=== PATIENT | female | born 1985 | race Hispanic/Latino ===

== ENCOUNTER 2017-08-30 18:18 | Outpatient (CLI) | payer OTHER ==
[~2017-08-30] VITALS: Ht 154.9 cm; Wt 73.0 kg
[2017-08-30 18:39] VITALS: BP 111/71
[2017-08-30 19:30] VITALS: BP 112/74
--- NOTE | 2017-08-30 20:02 | IPNPDOC ---
Text Note Date of Service The patient was seen on 08/30/17. NOTE Hortencia is a 32yo with SIUP at 39w5d presenting today with decreased movement and pelvic pain, some spotting. She states normally her baby moves all day long but today has not moved very much until coming to triage- now she feels good movement. She notes increased vaginal discharge today, a little bit of blood seen on a couple occasions. No overt loss of fluid. She is unsure if she is having contractions, feels more pelvic pressure and "cramping". Vitals wnl, afebrile General: WDWN, NAD, resting comfortably in triage bed Abdomen: soft, gravid, nontender Extremities: trace edema of BLE SCE (RN as bundler): 50/-2, NO blood on exam glove NST: reactive, +accels, no decels, mod fabian [place]: irregular ctx/uterine irritability TAUS: SIUP with +FCA/+FM, cephalic, posterior placenta, CLIFF 13cm Assessment: Term SIUP with no evidence of active labor, reassuring status. Now feeling good movement. Vitals wnl, CLIFF 13cm, Reactive NST. Plan: -Safe for discharge -Return precautions discussed at length -Has routine clinic appt Wednesday Dr. Aleida Kee ([facility])[place] MARIE,Donald, I+O VSDonald, I+O Vital Signs Date Time Temp Pulse Resp B/P (MAP) Pulse Ox O2 Delivery O2 Flow Rate FiO2 08/30/17 18:39 98.4 82 18 111/71 (84) ALEIDA KEE MD Aug 30, 2017 20:02
== END 2017-08-30 19:57 | disposition home or self-care (01) ==
LOC: M LDO 18:18
PROVIDERS: ATTEND Obstetrics & Gynecology
DX: O47.1 False labor at or after 37 completed weeks of gestation (principal); Z3A.39 39 weeks gestation of pregnancy; O36.8130 Decreased fetal movements, third trimester, not applicable or unspecified

== ENCOUNTER 2017-09-04 13:05 | Inpatient (IN) | payer OTHER ==
[2017-09-04] VITALS (7 sets, daily range): BP systolic 106–124; BP diastolic 65–77
[~2017-09-04] VITALS: Ht 154.9 cm; Wt 69.9 kg
[2017-09-04] MEDS ORDERED: LR 1,000 ML IV SCH (14:24)
[2017-09-04] MEDS ORDERED: PENICILLIN G POTASSIUM IV 5 MU in D5W MINI-BAG PLUS 100 ML IV STA ×2 (14:24→15:00)
[2017-09-04 14:50] LABS: MEAN CORPUSCULAR HEMOGLOBIN 22.1 pg (27.0-33.0); MEAN CORPUSCULAR HGB CONC 32.8 g/dl (32.0-36.5); RED CELL DISTRIBUTION WIDTH 15.8 % (11.5-14.5); WHITE BLOOD COUNT 12.5 10^3/uL (4.0-10.0)
[2017-09-04 14:53] LABS: MEAN CORPUSCULAR VOLUME 67.4 fl (80.0-96.0)
--- NOTE | 2017-09-04 14:58 | HPEPDOC ---
Obstetrical History & Physical General Date of Admission Sep 04, 2017 at 14:12 History of Present Illness 32 y/o at 40+3 for reg ctx's all morning. Getting more painful. No LOF, slight spotting. Pos FM throughout. Preg uncompl, speaks only occitan but is bilingual and translates very well. Chief Complaint: Contractions, term Information Provided By: Patient, Family Care Care: Good Care Dating Final EDC by: LMP, 1st trimester (US) Past Medical History Past Obstetrical History : Past Obstetrical History: [employer]LECT[employer]SEM[employer] AND TESTER History: No pertinent history Past Medical History Medical History denies Surgical History: Tonsilectomy Family History Significant Family History: No pertinent family hx Social History Marital Status: Family situation: Spouse/partner home Psychosocial History: No pertinent psych hx * Smoker: non-smoker Alcohol: Denies Drugs: denies Abuse Violence Screening Have you been hit/kicked/slapp: No Have you been sexually assault: No Imunizations Tdap status: current Influenza Status: needs Allergies Coded Allergies: No Known Allergies (Unverified , 08/30/17) Physical Examination Physical Examination GENERAL: Alert and oriented times three. ABDOMEN: Gravid and non-tender to touch. FETUS: vertex (VTX) by sterile vaginal examination (SVE), 4-5/75/-2/BBOW HEART RATE: Regular rate and rhythm. LUNGS: Clear to auscultation (CTA). EXTREMITIES: No edema. No clonus. Vital Signs/I&O Vital Signs Date Time Temp Pulse Resp B/P (MAP) Pulse Ox O2 Delivery O2 Flow Rate FiO2 09/04/17 13:19 98.4 81 20 124/75 (91) Room Air Laboratory Data 24H LABS Laboratory Tests 2 09/04/17 14:42: Urine Culture: No Growth Pertinent Laboratoy Data Blood Type: O+ RBC Antibody Screen: Negative HIV: Negative Hepatitis B: Negative Hepatitis C: Unknown Rapid Plasma Reagin: Nonreactive Rubella: Immune Varicella: Immune Chlamydia/Gonorrhea: Negative Group B Streptococcus: Positive Quad Screen Test: Negative (1st tri screen, not the quad screen, did not get a MSAFP) Cystic Fibrosis: Negative Glucose Tolerance Test: 86 Anatomy Ultrasound Placenta Location: Posterior Normal Anatomy: Yes Placenta Previa: No Assessment Variability: Moderate Accelerations: Positive Decelerations: None Tocometer Frequency: regular Duration: greater than 60 seconds Strength: palpated as moderate Assessment/Plan Assessment Active labor. reg ctx's. Plan Admit and orient. Counselor/Art Therapist and consent. Diet: clrs Group B Streptococcus (GBS) pos, PCN Labs and intravenous (IV) per unit protocol. Counseled on Pitocin and induction of labor (IOL). Lactated Ringers (LR): 125 mL/hr. No epidural desired at this time. Anticipate normal spontaneous delivery () C-S as appropriate. Sessions SESSIONS,SUSIE Marx MD Sep 04, 2017 14:58
--- NOTE | 2017-09-04 15:53 | IPNPDOC ---
Text Note Date of Service The patient was seen on 09/04/17. NOTE [id number] @ 1545 32 y/o at 40+3 by LMP([id number]) and 8+2 wk US on [id number] has had regular CTXs all day. Denies LOF and DFM. Reports a small amount of spotting. British speaking only, but is bilingual and translates very well. Report from Dr. Mcmanus @ 1500. S: Uncomfortable during CTX, standing at bedside with next to her providing support. Is not interested in any medication for pain control O: VS- WNL, afebrile FHR- 150, moderate variability, + accels, no decels CTX- Q 1-2 min, lasting <90 sec, palpated as moderate, resting tone palpated as soft. Intact SVE deferred A: 32 yo G1 @ 40+3 by LMP and 8+2 wks US. Frequent, painful, regular CTXs. CAT I FHR P: cont to monitor and assess. Reassess in 2 hours or prn. Consider pitocin if no change at next cervical exam VS,Fishbone, I+O VS, Fishbone, I+O Laboratory Tests 09/04/17 14:42 Red Blood Count 5.34, Mean Corpuscular Volume 67.4 L, Mean Corpuscular Hemoglobin 22.1 L, Mean Corpuscular Hemoglobin Concent 32.8, Red Cell Distribution Width 15.8 H Vital Signs Date Time Temp Pulse Resp B/P (MAP) Pulse Ox O2 Delivery O2 Flow Rate FiO2 09/04/17 13:19 98.4 81 20 124/75 (91) Room Air I&O- Last 24 Hours up to 6 AM 09/05/17 06:00 Intake Total 400 ml Output Total 200 ml Balance 200 ml BUDDY SANTO CNM Sep 04, 2017 15:53
--- NOTE | 2017-09-04 18:03 | IPNPDOC ---
Text Note Date of Service The patient was seen on 09/04/17. NOTE [id number] @ 1800 32 y/o at 40+3 by LMP([id number]) and 8+2 wk US on [id number] has had regular CTXs all day. Citizen Of [place] speaking only, but is bilingual and translates very well. S: Uncomfortable during CTX, standing at bedside with next to her providing support. Is not interested in any medication for pain control O: VS- WNL, afebrile FHR- 140, moderate variability, + accels, no decels CTX- Q 1-3 min, lasting <90 sec, palpated as moderate, resting tone palpated as soft. Intact BBW SVE 5-6/0/-2, soft/mi/vtx A: 32 yo G1 @ 40+3 by LMP and 8+2 wks US. cervical change noted, CAT I FHR P: cont to monitor and assess. Reassess in 2 hours or prn. Cont PCN as ordered d/t + GBS status VS,Fishbone, I+O VS, Fishbone, I+O Laboratory Tests 09/04/17 14:42 Red Blood Count 5.34, Mean Corpuscular Volume 67.4 L, Mean Corpuscular Hemoglobin 22.1 L, Mean Corpuscular Hemoglobin Concent 32.8, Red Cell Distribution Width 15.8 H Vital Signs Date Time Temp Pulse Resp B/P (MAP) Pulse Ox O2 Delivery O2 Flow Rate FiO2 09/04/17 13:19 98.4 81 20 124/75 (91) Room Air I&O- Last 24 Hours up to 6 AM 09/05/17 05:59 Intake Total 400 ml Output Total 200 ml Balance 200 ml BUDDY SANTO CNM Sep 04, 2017 18:03
[2017-09-04] MEDS ORDERED: PENICILLIN G POTASSIUM IV 2.5 MU in D5W 100 ML IV SCH (18:30)
[2017-09-04] MEDS: PENICILLIN G POTASSIUM IV 2.5 MU in D5W 100 ML IV SCH ×2 (19:27→23:17)
[2017-09-04] MEDS ORDERED: NALBUPHINE HCL 10 MG/ML AMP (J2300) IV ONE (19:45)
[2017-09-04] MEDS ORDERED: PROMETHAZINE INJ 25 MG/ML VIAL (J2550) IV ONE (19:45)
[2017-09-04] MEDS ORDERED: FENTANYL 2MCG/ML ROPIVACAINE 0.2% IN 0.9% NACL 200ML IVBAG As Ordered ONE (23:10)
[2017-09-04] MEDS ORDERED: OXYTOCIN 30 UNITS IN 0.9% NaCl 500ML IV BAG (J2590) As Ordered ONE (23:21)
[2017-09-05] VITALS (44 sets, daily range): BP systolic 91–127; BP diastolic 50–83
[2017-09-05] MEDS ORDERED: EPIDURAL COMMENT XX SCH (01:00)
[2017-09-05] MEDS ORDERED: NALOXONE INJ 0.4 MG/1 ML VIAL (J2310) IV PRN (01:00)
[2017-09-05] MEDS ORDERED: ONDANSETRON 4MG/2ML VIAL (J2405) IV PRN ×2 (01:00→08:15)
[2017-09-05] MEDS ORDERED: REFRIGERATOR IV KEYS XX PRN (01:00)
[2017-09-05] MEDS ORDERED: EPIDURAL/PCA KEYS XX PRN (01:00)
[2017-09-05] MEDS ORDERED: FENTANYL/ROPIVACAINE/NACL BAG 200 ML EPIDURAL SCH (01:00)
[2017-09-05] MEDS ORDERED: diphenhydrAMINE INJ 50MG/ML VIAL (J1200) IV PRN (01:00)
[2017-09-05] MEDS ORDERED: ePHEDrine SULFATE 25 MG/5 ML(5MG/ML) SYRINGE IV PRN (01:00)
--- NOTE | 2017-09-05 01:42 | IPNPDOC ---
Text Note Date of Service The patient was seen on 09/05/17. NOTE [id number] @ 0130 32 y/o at 40+4 by LMP([id number]) and 8+2 wk US on [id number] has had regular CTXs all day. Citizen Of [place] speaking only, but is bilingual and translates very well. S: Comfortable resting on her left side with epidural infusing. Spouse is at beside O: VS- WNL, afebrile FHR- 150, minimal variability, no accels, peristent early decels CTX- Q 8-10 min, lasting 60-120 sec, palpated as moderate, resting tone palpated as soft. Intact BBW SVE 7/90/-2, soft/mid/vtx A: 32 yo G1 @ 40+4 by LMP and 8+2 wks US. minimal cervical change noted, CAT II FHR P: cont to monitor and assess. Reassess prn. Cont PCN as ordered d/t + GBS status. Initiate pitocin IOL per unit protocol and titrate per protocol VS,Fishbone, I+O VS, Fishbone, I+O Laboratory Tests 09/04/17 14:42 Red Blood Count 5.34, Mean Corpuscular Volume 67.4 L, Mean Corpuscular Hemoglobin 22.1 L, Mean Corpuscular Hemoglobin Concent 32.8, Red Cell Distribution Width 15.8 H Vital Signs Date Time Temp Pulse Resp B/P (MAP) Pulse Ox O2 Delivery O2 Flow Rate FiO2 09/05/17 00:31 98.6 09/05/17 00:27 76 16 104/58 (73) 09/04/17 18:08 Room Air BUDDY SANTO CNM Sep 05, 2017 01:42
[2017-09-05] MEDS ORDERED: OXYTOCIN DRIP 30 UNITS in APPROPRIATE DILUENT 1 EA IV SCH ×5 (01:45→08:03)
[2017-09-05] MEDS: PENICILLIN G POTASSIUM IV 2.5 MU in D5W 100 ML IV SCH (03:09)
[2017-09-05] MEDS ORDERED: OXYTOCIN 30 UNITS IN 0.9% NaCl 500ML IV BAG (J2590) As Ordered ONE (07:34)
[2017-09-05] MEDS ORDERED: ACETAMINOPHEN 500 MG TAB PO PRN (08:15)
[2017-09-05] MEDS ORDERED: DIBUCAINE 1% OINTMENT 30GM TOP PRN (08:15)
[2017-09-05] MEDS ORDERED: DOCUSATE SODIUM 100 MG CAP PO PRN (08:15)
[2017-09-05] MEDS ORDERED: ANUSOL HC CREAM 30GM TOP PRN (08:15)
[2017-09-05] MEDS ORDERED: RHOGAM 300 MCG (1500 IU) INJ (J2790) IM SCH (08:15)
[2017-09-05] MEDS ORDERED: MOM 30ML SUSPENSION UDC PO PRN (08:15)
[2017-09-05] MEDS ORDERED: PROMETHAZINE 25 MG TAB PO PRN (08:15)
[2017-09-05] MEDS: PRENATAL VITAMINS CHEWABLE TABLET PO SCH (08:18)
--- NOTE | 2017-09-05 08:20 | DNPDOC ---
[facility] Delivery Note Delivery Note DATE OF DELIVERY: 05SEP2017 PREDELIVERY DIAGNOSIS: 40+4 weeks' gestation and labor. POST DELIVERY DIAGNOSIS: Delivered. PROCEDURE: GROUNDS/MAINTENANCE SPECIALIST:Tanisha Perkins CNM ANESTHESIA: epidural ESTIMATED BLOOD LOSS: 450 mL. FINDINGS: 8 pound 0 ounce male infant, Score 8/9, nuchal cord times x 1, body cord x 1 DELIVERY SUMMARY: Patient is a 32 who was admitted to labor and delivery for Active labor. Pitocin was initiated d/t minimal cervical change. Pt progressed to c/c/+3 with urge to push. head delivered in controlled manner. Amniotic fluid was meconium stained. Nuchal cord x 1 noted, unable to reduce. Anterior shoulder(left) was delivered with mild downward traction. Posterior shoulder and corpus delivered without difficulty. Body cord x 1 noted. Right compound arm noted. Delivered via summersault maneuver. Nuchal and body cord easily reduced. Placenta delivered intact with 3 vessel cord approx 3 min later. 2MLL was repaired using the Mcdowell Method. Fragile tissue noted during repair. EBL- 450, - 8/9, 8 lbs 0 oz, 3640 grams. Mother and infant doing well in delivery room. Anticipate routine PP course. Tanisha Perkins CNM WILSON, KELLI C. CNM Sep 05, 2017 08:20
[2017-09-05] MEDS: IBUPROFEN 800 MG TAB PO PRN ×2 (11:35→20:22)
[2017-09-06 06:00] VITALS: BP 120/60
[2017-09-06] MEDS: PRENATAL VITAMINS CHEWABLE TABLET PO SCH (07:48)
[2017-09-06] MEDS: IBUPROFEN 800 MG TAB PO PRN ×2 (07:49→19:47)
--- NOTE | 2017-09-06 08:40 | IPNPDOC ---
Text Note Date of Service The patient was seen on 09/06/17. NOTE PPD1 prog note States feeling well, no complaints. No heavy VB. Pain controlled. Voiding, ambulatory. Bonding well. Breast feeding. VSSAF CTAB RRR Ut at U-2, firm Ext no CCE a/p: Doing well. Routine PP care. Sessions VS,Donald, I+O VSDonald, I+O Vital Signs Date Time Temp Pulse Resp B/P (MAP) Pulse Ox O2 Delivery O2 Flow Rate FiO2 09/06/17 06:00 97.7 80 18 120/60 (80) 09/04/17 18:08 Room Air SESSIONS,SUSIE Marx MD Sep 06, 2017 08:40
[2017-09-06 18:00] VITALS: BP 123/73
[2017-09-07 05:52] VITALS: BP 114/77
[2017-09-07] MEDS ORDERED: PRENTAB9 PO (07:32)
[2017-09-07] MEDS ORDERED: ACET50TA PO (07:32)
[2017-09-07] MEDS ORDERED: IBUP-1114 PO (07:34)
[2017-09-07] MEDS ORDERED: COLA100C5 PO (07:34)
[2017-09-07] MEDS: PRENATAL VITAMINS CHEWABLE TABLET PO SCH (08:54)
[2017-09-07] MEDS: IBUPROFEN 800 MG TAB PO PRN (08:55)
== END 2017-09-07 12:10 | disposition home or self-care (01) | DRG 775 ==
LOC: M LDO 13:05 → M LDI 14:12 → M OBS 09-05 09:58
PROVIDERS: ADMIT Obstetrics & Gynecology; ATTEND Midwife
PROC: 10E0XZZ Delivery of Products of Conception, External Approach (ICD-10-PCS; principal; 2017-09-05)
PROC: 0KQM0ZZ Repair Perineum Muscle, Open Approach (ICD-10-PCS; 2017-09-05)
DX: O48.0 Post-term pregnancy (principal); O99.824 Streptococcus B carrier state complicating childbirth; Z3A.40 40 weeks gestation of pregnancy; O32.6XX0 Maternal care for compound presentation, not applicable or unspecified; O70.1 Second degree perineal laceration during delivery; O69.81X0 Labor and delivery complicated by cord around neck, without compression, not applicable or unspecified; Z37.0 Single live birth

== ENCOUNTER 2017-10-20 13:06 | Emergency (ER) | payer OTHER ==
[~2017-10-20] VITALS: Ht 154.9 cm; Wt 63.6 kg
[~2017-10-20 13:06] MED LIST: ACET50TA PO; COLA100C5 PO; IBUP-1114 PO; PRENTAB9 PO
[2017-10-20] MEDS ORDERED: GI COCKTAIL 50ML BTL(HYOSCYAMINE/MAALOX/LIDOCAINE VISCOUS)(1:3:1) PO ONE (14:15)
[2017-10-20] MEDS ORDERED: NS 1,000 ML IV ONE (14:15)
[2017-10-20] MEDS ORDERED: KETOROLAC 30 MG/ML VIAL (J1885) IV ONE (14:15)
[2017-10-20 14:19] LABS: BASO % 0.2 % (0.0-1.0); EOS % 0.3 % (0.0-3.0); IMMATURE GRANULOCYTE % 0.3 % (0-0); LYMPH # 2.3 10^3/uL (1.5-4.5); LYMPH % 23.4 % (24.0-44.0); MEAN CORPUSCULAR HEMOGLOBIN 21.5 pg (27.0-33.0); MEAN CORPUSCULAR HGB CONC 32.3 g/dl (32.0-36.5); MEAN CORPUSCULAR VOLUME 66.7 fl (80.0-96.0); MONO # 0.6 10^3/uL (0.0-0.8); MONO % 6.1 % (0.0-5.0); NEUTROPHILS % 69.7 % (36.0-66.0); PLATELET COUNT, AUTOMATED 495 10^3/uL (150-450); RED CELL DISTRIBUTION WIDTH 15.1 % (11.5-14.5)
[2017-10-20 14:22] LABS: CONTROL LINE UCG INT CTR LINE PRESENT
[2017-10-20 14:43] LABS: ALBUMIN/GLOBULIN RATIO 0.93 (1.00-1.93); ALKALINE PHOSPHATASE 98 U/L (45-117); ALT/SGPT 45 U/L (12-78); AMYLASE 70 U/L (25-115); ANION GAP 6 MEQ/L (8-16); AST/SGOT 23 U/L (7-37); BILIRUBIN,DIRECT < 0.1 MG/DL (0.0-0.2); BILIRUBIN,TOTAL 0.4 MG/DL (0.2-1.0); BLOOD UREA NITROGEN 9 MG/DL (7-18); CALCIUM LEVEL 10.1 MG/DL (8.5-10.1); CARBON DIOXIDE LEVEL 28 MEQ/L (21-32); CHLORIDE LEVEL 103 MEQ/L (98-107); CREATININE FOR GFR 0.47 MG/DL (0.55-1.02); GLOMERULAR FILTRATION RATE > 60.0 (>60); GLUCOSE, FASTING 84 MG/DL (70-105); POTASSIUM SERUM 4.2 MEQ/L (3.5-5.1); SODIUM LEVEL 137 MEQ/L (136-145); TOTAL PROTEIN 8.3 GM/DL (6.4-8.2)
--- NOTE | 2017-10-20 15:17 | REP ---
Right upper quadrant sonography: History: Epigastric pain, nausea vomiting and diarrhea. Comparison study: No comparison study Findings: Scanning through the right upper quadrant of the abdomen demonstrates a normal sized, thin-walled gallbladder without evidence of stone or polyp. Common bile duct is normal measuring 0.2 cm in greatest diameter. No focal liver lesion is seen. Liver size is normal. No pancreatic abnormality is observed. No right renal abnormality is seen. There is no evidence of ascites. The right kidney measures 10.3 x 5.2 x 4.1 cm. Impression: Negative right upper quadrant sonography. Signed by Todd Betancourt MD 10/20/2017 03:08 P
[2017-10-20] MEDS ORDERED: SUCR1SS PO (15:27)
[2017-10-20] MEDS ORDERED: CIPR-249 PO (15:27)
[2017-10-20] MEDS ORDERED: ZOFR4TAB3 PO (15:27)
[2017-10-20 15:44] VITALS: BP 118/71
== END 2017-10-20 15:46 | disposition home or self-care (01) ==
LOC: M ED 13:06
DX: N39.0 Urinary tract infection, site not specified (principal); Z87.19 Personal history of other diseases of the digestive system; D64.9 Anemia, unspecified
CPT/HCPCS: 36415; 76705; 80048; 80076; 81001; 82150; 83690; 84703; 85025; 86140; 96361; 96374; 99284; J1885

== ENCOUNTER 2018-12-03 00:16 | Emergency (ER) | payer OTHER ==
[~2018-12-03] VITALS: Ht 154.9 cm; Wt 140.0 kg
[~2018-12-03 00:16] MED LIST changes: -ACET50TA PO; +CIPR-249 PO; +MAPA500T2 PO; +SUCR1SS PO; +ZOFR4TAB14 PO
[2018-12-03 00:44] LABS: BASO % 0.4 % (0.0-1.0); EOS # 0.1 10^3/uL (0.0-0.50); EOS % 1.1 % (0.0-3.0); HEMATOCRIT 36.8 % (36.0-47.0); HEMOGLOBIN 11.6 g/dl (12.0-15.5); LYMPH # 3.9 10^3/uL (1.5-4.5); LYMPH % 40.3 % (24.0-44.0); MEAN CORPUSCULAR HEMOGLOBIN 21.2 pg (27.0-33.0); MEAN CORPUSCULAR HGB CONC 31.5 g/dl (32.0-36.5); MEAN CORPUSCULAR VOLUME 67.4 fl (80.0-96.0); MONO # 0.8 10^3/uL (0.0-0.8); MONO % 8.3 % (0.0-5.0); NEUTROPHILS # 4.8 10^3/uL (1.8-7.7); NEUTROPHILS % 49.7 % (36.0-66.0); PLATELET COUNT, AUTOMATED 482 10^3/uL (150-450); RED BLOOD COUNT 5.46 10^6/uL (4.00-5.40); WHITE BLOOD COUNT 9.7 10^3/uL (4.0-10.0)
[2018-12-03 00:59] LABS: HCG, SERUM QUALITATIVE NEGATIVE (NEGATIVE)
[2018-12-03 01:17] LABS: ALBUMIN 3.9 GM/DL (3.2-5.2); ALT/SGPT 24 U/L (12-78); BILIRUBIN,DIRECT < 0.1 MG/DL (0.0-0.2); BILIRUBIN,TOTAL 0.2 MG/DL (0.2-1.0); BLOOD UREA NITROGEN 9 MG/DL (7-18); CALCIUM LEVEL 9.2 MG/DL (8.5-10.1); CARBON DIOXIDE LEVEL 19 MEQ/L (21-32); CHLORIDE LEVEL 106 MEQ/L (98-107); CPK CREATINE PHOSPHOKINASE 139 U/L (26-192); CREATININE FOR GFR 0.67 MG/DL (0.55-1.30); GLOMERULAR FILTRATION RATE > 60.0 (>60); GLUCOSE, FASTING 83 MG/DL (70-100); MB/CK RELATIVE INDEX 1.08 (< OR =4); NT-PRO BNP 6 PG/ML (<125); POTASSIUM SERUM 3.7 MEQ/L (3.5-5.1); SODIUM LEVEL 139 MEQ/L (136-145); THYROXINE (T4) 9.7 UG/DL (4.5-12.0); TOTAL PROTEIN 8.4 GM/DL (6.4-8.2); TROPONIN I < 0.02 NG/ML (< 0.10)
[2018-12-03] MEDS ORDERED: IPRATROPIUM 0.5MG/ALBUTEROL 2.5MG INH SOL UD 3ML (DUONEB)(J7620) NEB ONE (01:30)
[2018-12-03] MEDS ORDERED: ISOVUE-370 76% 100ML VIAL (Q9967) As Ordered ONE (01:51)
[2018-12-03 02:13] LABS: VENOUS BASE EXCESS -3.1 (-2.0-2.0); VENOUS HCO3 19.7 MEQ/L (23.0-27.0); VENOUS O2 SATURATION 68.4 % (60.0-80.0); VENOUS PARTIAL PRESSURE CO2 28.3 mmHg (38.0-50.0); VENOUS PARTIAL PRESSURE O2 33.1 mmHg (30.0-50.0); VENOUS STANDARD HCO3 21.4 MEQ/L; VENOUS TOTAL CO2 20.5 MEQ/L (24.0-28.0)
--- NOTE | 2018-12-03 02:39 | REPVR ---
EXAM: CT Angiography Chest With Contrast EXAM DATE/TIME: 12/03/2018 1:47 AM CLINICAL HISTORY: 33 years old, female; Pain; Chest pain; Type not specified; Additional info: Chest pain, SOB TECHNIQUE: Axial computed tomographic angiography images of the chest with intravenous contrast using CT angiography protocol. All CT scans at this facility use at least one of these dose optimization techniques: automated exposure control; mA and/or kV adjustment per patient size (includes targeted exams where dose is matched to clinical indication); or iterative reconstruction. Coronal and sagittal reformatted images were created and reviewed. MIP reconstructed images were created and reviewed. COMPARISON: CR PORTABLE CHEST X-RAY 12/03/2018 1:25 AM FINDINGS: No focal pulmonary artery filling defect to suggest acute pulmonary embolus. No thoracic aortic aneurysm or dissection. No enlarged mediastinal lymph nodes. Residual thymic tissue is present in the anterior mediastinum. No pleural effusion or pneumothorax. Pulmonary vascular/interstitial pattern does not suggest active pulmonary edema. No suspicious lung mass or air space process. No central endobronchial lesion. Limited visualization of upper abdomen shows no concerning finding. Bony structures show no acute fracture or destructive process. IMPRESSION: No evidence of acute pulmonary embolus. No other acute or concerning focal intrathoracic abnormality. Electronically signed by: Kyle Steiner On 12/03/2018 02:38:53 AM
[2018-12-03] MEDS ORDERED: ALBUTEROL 90 MCG/ACT 8GM HFA INHALER INH ONE (03:45)
[2018-12-03 04:15] VITALS: BP 102/63
--- NOTE | 2018-12-03 08:07 | ECGEPIP ---
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
--- NOTE | 2018-12-03 08:38 | REP ---
Portable chest x-ray: Single view. History: Dyspnea and cough. No comparison study. Findings: EKG monitoring electrodes are seen. The lung hudson are well inflated and clear. Pleural angles are sharp. Heart size is normal. No significant bony abnormality. Impression: Negative portable chest x-ray. Electronically Signed by Todd Betancourt MD 12/03/2018 08:29 A
== END 2018-12-03 04:17 | disposition home or self-care (01) ==
LOC: M ED 00:16
DX: R06.02 Shortness of breath (principal); J45.909 Unspecified asthma, uncomplicated; Z91.011 Allergy to milk products
CPT/HCPCS: 71045; 71275; 80048; 80076; 82550; 82553; 82803; 83605; 83880; 84436; 84443; 84484; 84703; 85025; 85379; 93005; 93041; 94640; 99285; Q9967

== ENCOUNTER → 2019-02-22 | Outpatient (CLI) | payer OTHER ==
--- NOTE | 2019-02-22 15:59 | PFTRPT ---
Height: 61.00 Inches Weight: 144.00 Lbs BSA: 1.64 Diagnosis: ASTHMA DATE OF PROCEDURE: 02/22/2019 ORDERED BY: Lawson Singleton MD Spirometry: Excellent technical quality. Forced vital capacity normal. FEV1 is in proportion. Obstructive index is, therefore, normal. Flow Volume Loop: Expiratory limb of the flow volume loop is normal. Lung Volumes: Total lung capacity normal. Residual volume is in proportion. Diffusing Capacity: Diffusing capacity is mildly reduced but does not correct for alveolar volume. Hemoglobin: No hemoglobin available for correction. Airway Mechanics: Airway resistance and conductance are normal. IMPRESSION: Diffusing capacity impairment requires clinical correlation. MTDD
== END ==
LOC: M CARPUL 10:01
PROVIDERS: ATTEND Internal Medicine
DX: R06.00 Dyspnea, unspecified (principal)

== ENCOUNTER → 2019-02-23 | Outpatient (CLI) | payer OTHER ==
[~2019-02-23] MED LIST changes: +METHACHOLINE KIT (J7674) INH ONE
--- NOTE | 2019-02-23 15:43 | PFTRPT ---
Height: 61.00 Inches Weight: 144.00 Lbs BSA: 1.64 Diagnosis: ASTHMA DATE OF PROCEDURE: 02/23/2019 ORDERED BY: Lawson Singleton INTERPRETATION: Study of excellent technical quality. Under protocol, methacholine was administered. Even after a maximal dose of 25 mg or 188.875 CDUs, no provocation dose ever achieved. IMPRESSION: Negative methacholine challenge study. MTDD
== END ==
LOC: M CARPUL 14:53
PROVIDERS: ATTEND Internal Medicine
DX: R06.09 Other forms of dyspnea (principal)
CPT/HCPCS: 94070; J7674